=== PATIENT | male | born 1970 | race Caucasian/White ===

== ENCOUNTER 2017-07-25 00:35 | Inpatient (IN) | payer MEDICARE, OTHER ==
[~2017-07-25] VITALS: Ht 172.7 cm; Wt 105.7 kg
[2017-07-25] VITALS (61 sets, daily range): BP systolic 70–189; BP diastolic 30–105
[~2017-07-25 00:35] MED LIST: ATROPINE 1 MG/10 ML SYR IVP ONE; CODE BLUE PARTICIPANT 1 EA MISC MC ONE; EPINEPHrine PFS 0.1 MG/ML SYR IVP ONE; SODIUM BICARBONATE 8.4% PFS 50 MEQ/50 ML SYR IVP ONE
--- NOTE | 2017-07-25 00:35 | NUR ---
BIBA TO ER BED 3
--- NOTE | 2017-07-25 00:35 | NUR ---
Patient being evaluated by physician at bedside.
--- NOTE | 2017-07-25 00:35 | NUR ---
BIBA IN CARDIAC ARREST BY PARAMEDICS, 5 ROUNDS OF EPI GIVEN IN THE FIELD, CPR IN PROGRESS. PT INTUBATED IN THE FIELD WITH SIZE 7 TUBE. PT HAS HX OF ASTHMA. WAS FOUND DOWN AT HOME FOR 25 MINUTES, PULSE UPON ARRIVAL TO ED WAS 146, BP 83/59. PT WAS ASYSTOLE AT 0036.
--- NOTE | 2017-07-25 00:36 | NUR ---
BICARB GIVEN PER DR THOMPSON WHILE CPR CONTINUED. ACCU CHECK 294
--- NOTE | 2017-07-25 00:39 | NUR ---
EPI GIVEN PER DR THOMPSON.
--- NOTE | 2017-07-25 00:45 | NUR ---
# 14 FR Salazar catheter with 10 ml utilizing sterile technique. Immediate return of 10 ml CLEAR YELLOW urine noted. Bedside drainage bag placed below level of bladder. Urine sample collected and sent to lab. Pt tolerated procedure WELL.
--- NOTE | 2017-07-25 00:46 | NUR ---
BP 68/39. EPI DRIP/BOLUS STARTED PER DR THOMPSON.
--- NOTE | 2017-07-25 00:50 | NUR ---
#16 FR NG tube placed to LEFT nare. Placement checked by auscultation of instilled air into stomach and aspiration of gastric contents. Tubing taped in place to prevent dislodging. Patient tolerated WELL.
--- NOTE | 2017-07-25 00:50 | NUR ---
ATROPINE 0.5MG GIVEN PER DR THOMPSON.
--- NOTE | 2017-07-25 00:52 | NUR ---
SOLU-MEDROL 100MG GIVEN PER DR THOMPSON.
[2017-07-25] MEDS ORDERED: methylPREDNISolone SS 125 MG/2 ML VIAL ONE (00:57)
[2017-07-25] MEDS ORDERED: MAG SULF 2000 MG/WATER PREMIX 50 ML IV ONE ×2 (00:58→05:50)
--- NOTE | 2017-07-25 01:00 | NUR ---
PT GIVEN 15 MG ALBUTEROL AND 1MG ATROVENT TOTAL VIA INLINE CONTINUOUS NEBULIZER TO VENTILATOR PER DR SILVA
--- NOTE | 2017-07-25 01:00 | NUR ---
LEVOPHED DRIP STARTED PER DR. THOMPSON
--- NOTE | 2017-07-25 01:00 | NUR ---
LEVOPHED 8MG IN 250CC STARTED.
[2017-07-25] MEDS ORDERED: NOREPINEPHRINE 4 MG/4 ML VIAL IV ONE (01:04)
[2017-07-25] MEDS ORDERED: ALBUTEROL 0.083% 2.5 MG/3 ML NEBU INH ONE (01:05)
[2017-07-25] MEDS ORDERED: IPRATROPIUM 0.02% 0.5 MG/2.5 ML NEBU INH ONE (01:07)
--- NOTE | 2017-07-25 01:10 | NUR ---
MAGNESIUM DRIP STARTED PER DR THOMPSON
--- NOTE | 2017-07-25 01:25 | NUR ---
TRIPLE LUMEN - FEMORAL LINE PLACED BY DR THOMPSON. NO NEED FOR PLACEMENT VERIFICATION. TIME OUT CALLED BEFORE PROCEDURE.
[2017-07-25] MEDS ORDERED: PIPERACILLIN/TAZOBACTAM 3.375 GM in DEXTROSE 5% 50 ML IV ONE (01:40)
[2017-07-25] MEDS ORDERED: VANCOMYCIN 1,000 MG in DEXTROSE 5% 250 ML IV ONE (01:40)
--- NOTE | 2017-07-25 01:45 | NUR ---
NS BOLUS GIVEN. TEMP 95.4, PER MODESTO MONTGOMERY TO KEEP PT HYPOTHERMIC DUE TO RESUCITATION.
--- NOTE | 2017-07-25 01:45 | NUR ---
NORMAL SALINE BOLUS STARTED PER DR THOMPSON.
[2017-07-25 01:48] LABS: PLATELET COUNT (AUTO) 252 K/uL (140-450); WHITE BLOOD COUNT (AUTO) 9.9 K/uL (4.8-10.8)
[2017-07-25 01:50] LABS: APPEARANCE,URINE TURBID (CLEAR); BILIRUBIN,URINE NEGATIVE (NEGATIVE); BLOOD, URINE 3+ (NEGATIVE); COLOR,URINE RED (YELLOW); LEUKOCYTE ESTERASE ,URINE NEGATIVE (NEGATIVE); NITRITE, URINE NEGATIVE (NEGATIVE); PH,URINE 8.5 (5.0-9.0); UGLUCOSE 1+ (NEGATIVE)
--- NOTE | 2017-07-25 01:53 | NUR ---
PT ON VENT WITH RATE 20, TIDAL VOLUME 550, PEEP 5, FI02 100%. ABG BEING DRAWN NOW.
[2017-07-25 01:59] LABS: ALBUMIN 3.1 g/dL (3.4-5.0); ANION GAP 34.3 (8-16); CARBON DIOXIDE 16.5 mmol/L (21-32); CREATININE 1.4 mg/dL (0.7-1.3); HEMOGLOBIN 14.3 g/dL (12.0-18.0); MEAN CORPUSCULAR HEMOGLOBIN 35 pg (27-31); MEAN CORPUSCULAR HGB CONC 31 g/dL (33-37); POTASSIUM 4.8 mmol/L (3.5-5.1); RED BLOOD CELL COUNT(AUTO) 4.14 MIL/uL (4.20-6.10); RED CELL DISTRIBUTION WIDTH 17.3 % (11.6-13.7); TOTAL BILIRUBIN 0.2 mg/dL (0.0-1.0)
[2017-07-25 02:09] LABS: HEMATOCRIT 42.9 % (36-52); MEAN CORPUSCULAR VOLUME 113 fL (80-94)
[2017-07-25] MEDS ORDERED: SODIUM BICARBONATE 8.4% 100 MEQ in DEXTROSE 5% 1,000 ML IV SCH (02:10)
--- NOTE | 2017-07-25 02:10 | NUR ---
LEVOPHED DISCONTINUED PER DR THOMPSON.
[2017-07-25 02:11] LABS: BARBITURATE, URINE NEG. ng/ml (NEG <=200); BENZODIAZEPINE, URINE NEG. ng/mL (NEG <=200); CANNABINOID, URINE POS. ng/mL (NEG <=50); COCAINE, URINE NEG. ng/mL (NEG <=300); OPIATE, URINE NEG. ng/mL (NEG <=2000); PHENCYCLIDINE SCREEN,URINE NEG. ng/mL (NEG <=25)
[2017-07-25 02:12] LABS: LYMPHOCYTES % (MANUAL) 76 % (20-46)
[2017-07-25 02:13] LABS: EOSINOPHILS % (MANUAL) 3 % (0-4); MONOCYTES % (MANUAL) 1 % (5-12)
[2017-07-25] MEDS ORDERED: LORazepam 2 MG/ML VIAL IVP PRN (02:20)
[2017-07-25] MEDS ORDERED: DEXT 5% /NACL 0.9% 1,000 ML IV SCH ×2 (02:20→02:30)
[2017-07-25] MEDS ORDERED: ONDANSETRON 4 MG/2 ML VIAL IVP PRN ×2 (02:20→02:30)
--- NOTE | 2017-07-25 02:20 | NUR ---
Patient noted to have existing wounds upon arrival to ER. Photos taken of wound and placed in chart. Wound covered with dressing. Physician informed.
--- NOTE | 2017-07-25 02:30 | NUR ---
RECEIVED PATIENT FROM ED, ORALLY INTUBATED, HR 137, WITH TLC ON RIGHT FEMORAL AREA, NGT TO LEFT NARE, BANKS CATH WITH YELLOW URINE. SKIN ASSESSMENT DONE AND NOTED SMALL OPEN AREA ON RIGHT AND LEFT BUTTOCKS, PER SOLEDAD, PATIENT HAD FISTULA PLACED DUE TO HIS CROHNS DISEASE. TURNED AND REPOSITIONED PATIENT.
--- NOTE | 2017-07-25 02:30 | NUR ---
PT TRANSFERRED TO ICU 5 WITH SHARON GIMENEZ
[2017-07-25 02:33] LABS: RBC,URINE TOO NUMEROUS TO COUN /HPF (0-5); WBC,URINE 0-5 (RARE) /HPF (0-5)
--- NOTE | 2017-07-25 02:40 | NUR ---
MAGNESIUM IVPB COMPLETE WITHOUT PROBLEMS. 50CC INFUSED.
[2017-07-25 02:41] LABS: PHOSPHORUS 17.6 mg/dL (2.5-4.9)
--- NOTE | 2017-07-25 02:45 | NUR ---
Patient will be admitted to care of DR CONNOR. Admited to ICU. Will go to room 5. Belongings list completed. Report to PERNELL GONZALEZ.
--- NOTE | 2017-07-25 03:05 | NUR ---
CALLED DR. MENDY CONNOR FOR CARDIO CONSULT, MD INFORMED THAT PATIENT'S HR IS ELEVATED WHEN ADMITTED FROM ED 137 BUT ITS STARTING TO GO DOWN NOW. LEVOPHED DRIP WAS GIVEN IN ED BUT WAS STOPPED DUE TO SBP WENT UP TO 200. DR. CONNOR SAID TO MONITOR FOR NOW AND IF HR DOES NOT GO DOWN THEN TO CALL HIM AGAIN.
[2017-07-25] MEDS ORDERED: PIPERACILLIN/TAZOBACTAM 3.375 GM VIAL IV ONE (03:10)
--- NOTE | 2017-07-25 03:10 | NUR ---
SPOKE WITH DR. ORQUIDEA CONNOR, INFORMED THAT PATIENT'S HR ON ADMISSION FROM ED WAS 137 BUT IT'S GOING DOWN NOW, 123. CLARIFY WITH MD WHAT IVF TO GIVE THE PATIENT, MD STATED GIVE THE BICARBONATE DRIP AND DC D5NS.
[2017-07-25] MEDS ORDERED: VANCOMYCIN 1,000 MG VIAL ONE (03:11)
[2017-07-25] MEDS ORDERED: ALBUTEROL SULFATE/IPRATROPIU 3 ML SOL IH PRN (03:15)
--- NOTE | 2017-07-25 03:54 | NUR ---
0340-ICU INFO OF CHANGE IN PMD TO [facility].
--- NOTE | 2017-07-25 04:00 | NUR ---
SOLEDAD () LEFT AT THIS TIME, WILL COM BACK LATER TODAY.
[2017-07-25] MEDS ORDERED: SODIUM BICARBONATE 8.4% PFS 50 MEQ/50 ML SYR IVP ONE (04:01)
--- NOTE | 2017-07-25 04:53 | NUR ---
SPOKE WITH DR. DENILSON MD ON HIS WAY TO SEE THE PATIENT HERE.
[2017-07-25] MEDS ORDERED: PIPERACILLIN/TAZOBACTAM 3.375 GM in DEXTROSE 5% 50 ML IV SCH ×4 (05:00)
--- NOTE | 2017-07-25 05:18 | NUR ---
0500 ZOSYN ORDER NOT ADMINISTERED BECAUSE THE FIRST DOSE WAS ADMINISTERED AT 0330.
[2017-07-25] MEDS ORDERED: methylPREDNISolone SS 125 MG/2 ML VIAL IVP SCH ×2 (05:50→06:37)
[2017-07-25] MEDS ORDERED: ATROPINE 0.4 MG/ML VIAL IVP ONE (05:50)
[2017-07-25] MEDS ORDERED: NACL 0.9% 2,000 ML IV ONE (05:50)
--- NOTE | 2017-07-25 06:20 | NUR ---
REC'D PT ON CARESCAPE VENT SETTINGS AC 20 VT550 PEEP 5 FIO2 100% ALARMS ON AND FUNCTIONING PROPERLY, AMBU BAG AT SIDE OF VENTILATOR AND VENTILATOR IS PLUGGED INTO RED OUTLET, B\S ARE DIMINISHED AND WHEEZING BILATERALLY, I\L TX GIVEN WITH DUONEB 3ML WITH NO ADVERSE REACTION POST TX, PT IS ORALLY INTUBATED WITH 7.0 ET TUBE SECURED WITH ANCHOR FAST AT 23 CM AT LEFT CORNER OF MOUTH AND SKIN INTEGRITY IS INTACT, SNX PT SMALL AMT OF WHITE SECRETIONS, AT 0600 AT BEDSIDE MAKING CHANGES TO VENT: DECREASED RR TO 12 AND DECREASED FIO2 TO 60% TO KEEP O2 SAT ABOVE 90% INCREASED FLOW TO 60 AND BREATHING TX TO Q1HOUR OF ALBUTEROL 2.5MG FOR THE FIRST 24 HOURS AND AT 0800 ABG AND TO CALL HIM WITH RESULTS AT [address] SCAN OF HEAD WAS BAGGED WITH 100% FIO2 AND RETURNED TO ICU 5 AND PLACED BACK ON VENT WITH SAME NEW SETTINGS
--- NOTE | 2017-07-25 06:20 | NUR ---
ABG DRAWN ON LR WITHOUT INCIDENT AND RESULTS GIVEN TO DR. OREILLY WITH CHANGES MADE TO VENT DECREASED RR TO 12 DECREASED FIO2 TO 60% TO KEEP O2 SAT ABOVE 90% INCREASED FLOW TO 50 AND D\C DUONEB TX CHANGED TO Q1 HOUR ALBUTEROL 2.5MG FOR THE FIRST 24 HOURS AND ABG AT 0800
[2017-07-25] MEDS ORDERED: NACL 0.9% 500 ML IV SCH (06:40)
--- NOTE | 2017-07-25 06:40 | NUR ---
DR. OREILLY CAME TO SEE THE PATIENT AROUND 0600, LEFT AT THIS TIME WITH NEW ORDERS GIVEN.
[2017-07-25] MEDS ORDERED: ALBUTEROL SULFATE/IPRATROPIU 3 ML SOL IH SCH (07:00)
--- NOTE | 2017-07-25 07:05 | NUR ---
PATIENT TAKEN TO Vator FOR CT SCAN HEAD WITHOUT CONTRASTAT 0650, BACK TO ICU AT THIS TIME.
[2017-07-25] MEDS: ALBUTEROL 0.083% 2.5 MG/3 ML NEBU INH SCH ×15 (07:23→23:21)
--- NOTE | 2017-07-25 07:25 | NUR ---
RECEIVED REPORT FROM PERNELL GONZALEZ. PT IS APHASIC, EYES ARE FIXED AND DILATED. FLACC 0. PT IS ETT TO VENT. FIO2: 30%, TV: 550, AC: 12, PEEP: 5. PT HAS CENTRAL LINE TO RIGHT FEMORAL TLC. IV TO LEFT AC #18 AND RIGHT AC #18, PATENT AND INTACT. PT HAS FISTULA TO BUTTOCKS WITH TWO SMALL OPENINGS ON EACH BUTTOCK NOTED. NGT IN PLACE TO LEFT NARE. BANKS CATHETER IN PLACE TO GRAVITY DRAINAGE BAG. SAFETY PRECAUTIONS IN PLACE WITH BED IN LOWEST POSITION AND SIDE RAILS UP. CALL LIGHT WITHIN REACH. PT IS CURRENTLY SINUS RHYTHM ON THE MONITOR. WILL CONTINUE TO MONITOR.
[2017-07-25] MEDS: NACL 0.9% 1,000 ML IV SCH ×3 (07:26→18:45)
--- NOTE | 2017-07-25 07:44 | NUR ---
DR. LEYVA CALLED (BUNDLE SORTER FOR DR. OREILLY). NOTIFIED OF CRITICAL CT SCAN OF HEAD RESULTS. GAVE ORDERS.
--- NOTE | 2017-07-25 07:46 | NUR ---
ENDORSED PATIENT AND REPORT GIVEN TO GATO COSTELLO RN FOR CONTINUITY OF CARE.
--- NOTE | 2017-07-25 07:46 | NUR ---
DR. COLLADO'S EXCHANGE NOTIFIED OF STAT NEURO CONSULT.
--- NOTE | 2017-07-25 08:09 | NUR ---
G DRAWN ON LB WITHOUT INCIDENT AND DR. OREILLY WAS CALLED
--- NOTE | 2017-07-25 08:10 | NUR ---
PATIENT HAS BEEN SCREENED AND CATEGORIZED HIGH NUTRITION RISK. PATIENT WILL BE SEEN WITHIN 1-2 DAYS OF ADMISSION. 07/25/17-07/26/[address]
--- NOTE | 2017-07-25 08:22 | NUR ---
DR. LEYVA CALLED AND GIVEN THE RESULTS OF ABG AND CHANGES MADE TO VENTILATOR ARE INCREASED RR TO 22 AND DEREASED VT TO 500 AND ABG AT 0930 RN GATO Shields NOTIFIED OF CHANGES MADE TO VENT
--- NOTE | 2017-07-25 08:50 | NUR ---
RECEIVED CALL FROM DR. COLLADO. UPDATED HIM ON PT'S CURRENT STATUS. PER DR. COLLADO, PT NEEDS TO BE TRANSFERRED TO HIGHER LEVEL OF CARE.
--- NOTE | 2017-07-25 09:03 | NUR ---
PAGED DR. LEYVA REGARDING TRANSFERRING PT TO HIGHER LEVEL OF CARE. AWAITING CALLBACK
--- NOTE | 2017-07-25 09:09 | NUR ---
RECEIVED CALLBACK FROM DR. LEYVA. INFORMED THAT HE WILL SPEAK WITH DR. COLLADO REGARDING PLAN FOR PT.
--- NOTE | 2017-07-25 09:10 | NUR ---
VENT CHECK, NO SXN REQUIRED AT THIS TIME, B\S ARE WHEEZING BILATERALLY, AIRWAY IS PATENT AND AT BEDSIDE NO CHANGES MADE AT THIS TIME
[2017-07-25] MEDS: PANTOPRAZOLE 40 MG INJ VIAL IVP SCH (09:20)
[2017-07-25] MEDS: AZITHROMYCIN 500 MG in DEXTROSE 5% 250 ML IV SCH (09:20)
--- NOTE | 2017-07-25 09:23 | NUR ---
PAGED DR. LEYVA REGARDING CRITICAL LAB RESULT. AWAITING CALLBACK.
--- NOTE | 2017-07-25 09:26 | NUR ---
G DRAWN ON RR WITHOUT INCIDENT AND DR. LEYVA WAS CALLED
--- NOTE | 2017-07-25 09:29 | NUR ---
RECEIVED CALL FROM DR. COLLADO, INFORMED THAT HE NO LONGER WANTS TO TRANSFER THE PT TO HIGHER LEVEL OF CARE.
[2017-07-25 09:42] LABS: CREATINE KINASE MB 59.9 ng/mL (0-3.6)
--- NOTE | 2017-07-25 09:44 | NUR ---
RE-PAGED DR. LEYVA, AWAITING CALLBACK.
[2017-07-25] MEDS: NOREPINEPHRINE 8 MG in DEXTROSE 5% 250 ML IV PRN (10:04)
--- NOTE | 2017-07-25 10:04 | NUR ---
DR. LEYVA WAS PAGED AGAIN
--- NOTE | 2017-07-25 10:15 | NUR ---
RE-PAGED DR. LEYVA. AWAITING CALLBACK.
--- NOTE | 2017-07-25 10:28 | NUR ---
RECEIVED ORDER FOR TRANSFER FOR HIGHER LEVEL OF CARE. I CALLED JHONNY AT [facility] AND SHE SAID I NEED TO CONTACT PHYSICIAN [facility]. I CALL [facility] AND SPOKE WITH ANEL, OP 1 AND INFORMED HER OF TRANSFER TO HIGHER LEVEL OF CARE. SHE TOLD ME TO FAX FACE [facility]ET AND REVIEW TO HER AT [phone]. FAXED INITIAL REVIEW TO HER. CALLED ANEL AND INFORMED HER THAT DR. COLLADO CANCELED THE TRANSFER TO HIGHER LEVEL OF CARE.
--- NOTE | 2017-07-25 10:37 | NUR ---
STILL HAVE NOT RECEIVED A CALLBACK FROM DR. LEYVA. CALLED [employer] TO SEND OUT A PAGE
--- NOTE | 2017-07-25 10:39 | NUR ---
RECEIVED CALLBACK FROM DR. LEYVA. NEW ORDERS RECEIVED.
--- NOTE | 2017-07-25 10:40 | NUR ---
DR. LEYVA CALLED AND GIVEN THE ABG RESULTS WITH CHANGES MADE TO VENTILATOR: INCREASE VT TO 600 AND INCREASE RR TO 24 AND ABG AT 1200 PERNELL HOSKINS NOTIFIED OF CHANGES MADE
--- NOTE | 2017-07-25 11:20 | NUR ---
VENT CHECK, NO SXN REQUIRED AT THIS TIME, AIRWAY IS PATENT
--- NOTE | 2017-07-25 11:25 | NUR ---
PT'S , SY, PRESENT AT BEDSIDE.
--- NOTE | 2017-07-25 11:30 | NUR ---
07/25/17 RD INITIAL ASSESSMENT COMPLETED PLEASE REFER TO NUTRITION ASSESSMENT UNDER CARE ACTIVITY FOR ESTIMATED NUTRITIONAL NEEDS. 1. INITIATE ENTERAL NUTRITION SUPPORT - NUTREN PULMONARY AT 20 ML/HR (TO REMAIN SLOW UNTIL LABS ARE STABLE) 2. RD TO FOLLOW-UP 2-3 DAYS, HIGH RISK SHELBY VALADEZ, [place]WALD
--- NOTE | 2017-07-25 11:32 | NUR ---
DR. LEYVA IN TO SEE PT.WILL FOLLOW UP ON ORDERS
--- NOTE | 2017-07-25 11:52 | NUR ---
DR. Giovani CONNOR IN TO SEE PT. WILL FOLLOW UP ON ORDERS.
[2017-07-25] MEDS ORDERED: oxyCODONE 40 MG TABER PO SCH ×2 (12:00→18:00)
[2017-07-25] MEDS ORDERED: levETIRAcetam 500 MG in NACL 0.9% 100 ML IV SCH (12:30)
[2017-07-25] MEDS: methylPREDNISolone SS 125 MG/2 ML VIAL IVP SCH ×2 (12:32→21:26)
--- NOTE | 2017-07-25 12:44 | NUR ---
ABG DRAWN ON LR WITHOUT INCIDENT AND AT 1251 DR. LEYVA PAGED AND AT 1254 CALLED AND GIVEN THE ABG RESULTS WITH CHANGES MADE TO VENTILATOR: INCREASE RR TO 26 AND DECREASE FIO2 TO 50% AND ABG IN AM ON 07/26/17 PERNELL Shields NOTIFIED OF CHANGES MADE.
--- NOTE | 2017-07-25 12:54 | NUR ---
PT'S AUNT PRESENT AT BEDSIDE.
[2017-07-25] MEDS ORDERED: MORPHINE SULFATE 2 MG/ML SYR IVP PRN (14:15)
[2017-07-25] MEDS: LORazepam 2 MG/ML VIAL IVP PRN (14:19)
--- NOTE | 2017-07-25 14:26 | NUR ---
PT IS ADAMANT ON ADMINISTERING MEDICATION FOR PAIN RELIEF. INFORMED HER THAT THE PATIENT DOES NOT APPEAR TO BE IN ANY PAIN, FLACC IS 0. PT'S SPOUSE STILL ADAMANT ON ADMINISTERING MEDICATION. CHECKED BP: 103/62. ADMINISTERED ATIVAN AND MORPHINE PER REQUEST. PT TOLERATED WELL. WILL CONTINUE TO MONITOR. Addendum: 07/25/17 at 1458 by Amanda Escamilla RN CHARTED "PT IS ADAMANT ON ADMINISTERING MEDICATION" IN ERROR. PT'S SPOUSE, SOLEDAD, ADAMANT ON ADMINISTERING PAIN MEDICATION.
--- NOTE | 2017-07-25 14:54 | NUR ---
TRIMMING CASERANNMARIE, PRESENT AT BEDSIDE FOR WOUND CARE EVAL.
[2017-07-25] MEDS ORDERED: FOAM DRESSING TP PRN (14:55)
--- NOTE | 2017-07-25 15:26 | NUR ---
WOUND CARE EVALUATION NOTE: REASON FOR EVALUATION: OPEN WOUNDS COMPLETE SKIN ASSESSMENT DONE ON THIS 47 Y/O MALE PATIENT FROM HOME TO [facility], WITH INITIAL DIAGNOSIS OF RESPIRATORY ARREST. PAST MEDICAL HISTORY INCLUDE SEVERE ASTHMA. ALL ABOVE INFORMATION WAS OBTAINED FROM THE ADMISSION H&P. LABS ARE WBC 9.9, H/H 14.3/42.9. CURRENT MEDS INCLUDE LEVETIRACETAM, OXYCODONE, AZITHROMYCIN, ALBUTERAL, LORAZEPAM AND MORPHINE. PATIENT IS INTUBATED AND SEDATED, NON-VERBAL. EYES OPEN BUT CAN'T TRACK MOVEMENT. NG TUBE IN PLACE, F/C #16FR PATENT WITH BALTAZAR COLOR OF SMALL AMOUNT OF URINE NOTICE IN BEDSIDE DRAINAGE BAG. TRIPLE LUMEN FEMORAL LINE WITH DRESSING IN PLACE AT RIGHT GROIN AREA. SKIN WARM AND MOIST TO TOUCH, TOENAILS ARE SLIGHTLY THICKENED, NO EDEMA,, WITH FEW HAIR GROWTH AND BILATERAL DORSAL PEDAL PULSES PRESENT. URINE AND BOWEL INCONTINENT. NEEDS MAX ASSISTANCE IN TURNING. INITIAL PLAN OF CARE AND PRESSURE PREVENTIVE MEASURES DISCUSSED WITH PRIMARY RN. INTEGUMENTARY: RIGHT BUTTOCK-BLANCHABLE REDNESS-[id number], QUESTIONABLE REOPEN OLD HEALED WOUND WITH SMALL PIN POINT 0.1X0.1, DEPTH UTD LEFT BUTTOCK -BLANCHABLE REDNESS- 2CM X 1CM WITH ERYTHAMA. QUESTIONABLE REOPEN OLD HEALED WOUND WITH SMALL PIN POINT 0.1X0.1, DEPTH UTD SACRALCOCCYX TO PERIAREA - RED AND MOIST DUE TO URINE AND BOWEL INCONTINENCE RIGHT HEEL - THICK CALLUS LEFT HEEL - THICK CALLUS RECOMMENDATIONS: -SACRALCOCCYX AND PERIAREA: CLEANSE WITH MILD SOAP AND WATER, PAT DRY, APPLY Z GUARD BIDWC AND PRN WITH SOILING LEAVE OPEN TO AIR -BILATERAL BUTTOCKS, CLEANSE WITH NS, PAT DRY, APPLY OPTIFORM QD AND PRN IF SOILING -TURN AND REPOSITION PATIENT Q2H TO LEFT AND RIGHT SIDE ONLY TO OFFLOAD SACRALCOCCYX AND BUTTOCKS -ASSESS AND MONITOR SKIN CONDITION DURING POSITION CHANGE, PLEASE PAY PARTICULAR ATTENTION TO SACRALCOCCYX, ELBOWS ANDB UTTOCKS -OFFLOAD BILATERAL HEELS BY PLACING PILLOWS UNDER CALVES AT ALL TIMES, UNLESS OTHERWISE CONTRAINDICATED -KEEP SKIN CLEAN AND DRY AT ALL TIMES. -PRESSURE REDISTRIBUTION SURFACE THERAPY. RECOMMENDATIONS DISCUSSED WITH PRIMARY RN WILL FOLLOW UP PATIENT Q7-10 DAYS AND PRN. PLEASE CONTACT WOUND CARE NURSE FOR ANY CONCERNS, QUESTIONS AND CHANGES IN WOUND CONDITION.
--- NOTE | 2017-07-25 15:41 | NUR ---
CHECKED PT'S TEMP: 100.8. NO TYLENOL IS ON BOARD, INITIATED COOLING MEASURES. PAGED DR. LEYVA FOR ORDERS. AWAITING CALLBACK
--- NOTE | 2017-07-25 15:57 | NUR ---
RECEIVED CALLBACK FROM DR. LEYVA. NEW ORDERS RECEIVED.
--- NOTE | 2017-07-25 15:58 | NUR ---
RECHECKED TEMP: 98.7. WILL CONTINUE TO MONITOR
--- NOTE | 2017-07-25 15:58 | NUR ---
TRACKING NUMBERT FROM [facility] [id number]
[2017-07-25] MEDS ORDERED: Z-GUARD PASTE TP PRN (16:10)
[2017-07-25] MEDS: ACETAMINOPHEN 325 MG TAB NG PRN ×2 (16:20→21:47)
--- NOTE | 2017-07-25 16:30 | NUR ---
CHECKED TEMP: 103.2. TYLENOL ADMINISTERED ORDERED FOR FEVER PRN. CHECKED TUBE FEEDING RESIDUAL: 5ML, RETURNED TO PT. PT TOLERATED MEDS WELL. WILL CONTINUE TO MONITOR.
--- NOTE | 2017-07-25 17:19 | NUR ---
RECHECKED TEMP. PT IS STILL FEBRILE: 103.2, WILL ADMINISTER COOLING BLANKET
--- NOTE | 2017-07-25 17:42 | NUR ---
DR. COLLADO IN TO SEE PT. WILL FOLLOW UP ON ORDERS.
--- NOTE | 2017-07-25 19:22 | NUR ---
1830 recieved pt on vent ac 26 vt 600 peep5 fio2 50%. pt given inline hhntx. bs are tight and wheezing.high peak pressures are alarming. called dr cummings to maybe make a change in mode. dr cummings said to just increase alarms.
--- NOTE | 2017-07-25 19:45 | NUR ---
REPORT TAKEN FROM DAY NURSE DEEPA - RN WITH RESUME CARE. PT'S ON COOLING BLANKET THERAPY WITH TEM 104.3 F VIA RECTAL TEMP. IVF AND LEVOPHED IN PROGRESS VIA RIGHT FEMORAL TLC, LINE PATENT.
--- NOTE | 2017-07-25 19:45 | NUR ---
ENDORSED CARE TO PERNELL YAO AND PERNELL WASHUBRN. PT IN STABLE CONDITION.
--- NOTE | 2017-07-25 20:00 | NUR ---
ORAL CARE DONE , DARK COLOR SECRETION NOTED. NG TUBE FEEDING HOLD WITH RESIDUAL @ 50 MLS , FOOD AND DARK BROWN COLOR NOTED. BANKS CATH GRAVITY TO FLOOR.
--- NOTE | 2017-07-25 20:53 | NUR ---
LEVOPHED DRIP STOPPED AT THIS TIME. PT'S BP 142/85. WILL CONTINUE TO MONITOR.
[2017-07-25] MEDS: levETIRAcetam 500 MG in NACL 0.9% 100 ML IV SCH (21:27)
[2017-07-25] MEDS ORDERED: levETIRAcetam 100 MG/ML VIAL IV ONE (21:29)
--- NOTE | 2017-07-25 22:00 | NUR ---
PT'S CAME , UP DATED PT CONDITION WITH RESPOND WELL.
[2017-07-26] VITALS (103 sets, daily range): BP systolic 84–131; BP diastolic 44–101
--- NOTE | 2017-07-26 | NUR ---
PT'S ASLEEP. RESPOND TO COOL WATER. ORAL CARE DONE . REPOSITION DONE . KEEP HOB 30 WITH TOLERATING WELL. NG TUBE SUCTION DONE WITH DARK GREEN , 150 , HOLD FEEDING AT THIS TIME.
--- NOTE | 2017-07-26 00:44 | NUR ---
BP DROP TO 84/50 ( MAP 61) , RE START LEVOPHED @ 5MCG/ MIN VIA FEMORAL TLC , LINE PATENT
--- NOTE | 2017-07-26 00:45 | NUR ---
PT'S LEFT , PT'S FEVER COME DOWN TO 100.3
[2017-07-26] MEDS: ALBUTEROL 0.083% 2.5 MG/3 ML NEBU INH SCH ×6 (00:47→07:21)
[2017-07-26] MEDS: Z-GUARD PASTE TP SCH ×2 (01:35→12:59)
--- NOTE | 2017-07-26 01:47 | NUR ---
NOTIFIED DR. WILBURN RE < 0.4 SEC WITH 14 BEATS MONO V FIB , NO NEW ORDER.
[2017-07-26] MEDS: LORazepam 2 MG/ML VIAL IVP PRN (02:17)
[2017-07-26 02:54] LABS: CREATINE KINASE MB 27.8 ng/mL (0-3.6)
--- NOTE | 2017-07-26 04:31 | NUR ---
NOTIFIED DR. VELÁZQUEZ OF CRITICAL LAB RESULT TROPONIN 11.950. HE SAID IT IS OK. DR. VELÁZQUEZ ALSO NOTIFIED THAT DR. Giovani CONNOR WAS CANCELLED CONSULT YESTERDAY AM. HE SAID TO HAVE DR. MENDY CONNOR FOR CARDIO CONSULT IN AM.
[2017-07-26 04:57] LABS: HEMOGLOBIN 13.4 g/dL (12.0-18.0); MEAN CORPUSCULAR HEMOGLOBIN 35 pg (27-31); MEAN CORPUSCULAR HGB CONC 32 g/dL (33-37); MEAN CORPUSCULAR VOLUME 109 fL (80-94); PLATELET COUNT (AUTO) 167 K/uL (140-450); RED BLOOD CELL COUNT(AUTO) 3.87 MIL/uL (4.20-6.10); RED CELL DISTRIBUTION WIDTH 16.5 % (11.6-13.7); WHITE BLOOD COUNT (AUTO) 13.4 K/uL (4.8-10.8)
--- NOTE | 2017-07-26 05:02 | NUR ---
DR. Shyanne CONNOR NOTIFIED OF THE CARDIO CONSULT PER TORB BY DR. VELÁZQUEZ. DR. Giovani CONNOR AWARE OF PT'S LATEST TROPONIN LEVEL OF 11.950. HE SAID "IT IS EXPECTED." NO ORDERS RECEIVED. WILL CONTINUE TO MONITOR.
[2017-07-26] MEDS: NACL 0.9% 1,000 ML IV SCH ×3 (05:40→15:24)
[2017-07-26] MEDS: methylPREDNISolone SS 125 MG/2 ML VIAL IVP SCH ×3 (05:59→20:55)
--- NOTE | 2017-07-26 06:00 | NUR ---
AM CARE DONE , REPOSITION DONE. ORAL CARE DONE. NG TUBE FEEDING ON HOLD WITH 700 RESIDUAL ALL NIGHT . FEVER WENT DOWN TO 98.3 WITH PT'S REST IN BED.
--- NOTE | 2017-07-26 06:58 | NUR ---
RCV'D PT INTUBATED WITH A 7.0 ETT AT 23 AT THE LIP. SETTINGS ARE AC 600,26,5,50%. PT IS NOT ALERT. PT HAS HIGH PEAK PRESSURES. VENT IS CONNECTED TO RED OUTLET. ALARMS ARE WORKING AND AUDIBLE. AMBU BAG AT BEDSIDE. ALB HHN TX GIVEN. ABG DONE BY RT BURGOS WITHOUT INCIDENT. PAGED DR DAVIS WAITING FOR CALLBACK TO GIVE RESULTS. WILL CONTINUE TO MONITOR.
--- NOTE | 2017-07-26 07:15 | NUR ---
REPORT ENDORSE TO DAY NURSE WITH RESUME CARE
--- NOTE | 2017-07-26 07:22 | NUR ---
STILL NO ANSWER FROM DR DAVIS. FREEMAN TX OF ALB Q1 GIVEN. WILL CONTINUE TO MONITOR. Addendum: 07/26/17 at 0724 by Kay Bailey RT RN AWARE OF ABG RESULTS AND OF PAGKG PANTOJA
[2017-07-26 07:29] LABS: LYMPHOCYTES % (MANUAL) 4 % (20-46); MONOCYTES % (MANUAL) 5 % (5-12)
--- NOTE | 2017-07-26 07:30 | NUR ---
RECEIVED REPORT FROM PERNELL WASHBURN. PT GCS OF 3. BILATERAL EYES DILATED AND FIXED. FLACC OF 0. NO S/SX OF DISCOMFORT NOTED. ETT TO VENT. SATURATING AT 95%. TOLERATING WELL. SR ON MONITOR. BOWEL SOUNDS HEARD. NG TUBE TO THE LEFT NARES NOTED. HOLDING TUBE FEEDING FOR NOW D/T RESIDUAL. WILL RECHECK. BILATERAL UPPER EXTREMITIES AND BILATERAL LOWER EXTREMITIES NOTED TO BE FLACCID. COLD TO TOUCH. DOES NOT RESPOND TO PAIN. R FEMORAL TRIPLE LUMEN CENTRAL LINE NOTED. INTACT AND PATENT. CONTINUE LEVOPHED DRIP ORDERED. TOLERATED WELL. SKIN NONINTACT. WOUNDS NOTED ON BILATERAL BUTTOCKS. DRAINAGE NOTED. MD AWARE. RECTAL PROBE IN PLACE FOR ACCURATE TEMPERATURE CHECK. AFEBRILE. NO COOLING MEASURES NEEDED. BANKS CATHETER IN PLACE. DRAINING DARK MURKY YELLOW URINE. SAFETY PRECAUTION IN PLACE. BED AT LOWEST SETTING. HOB AT 30 DEGREE. CALL LIGHT WITHIN REACH. WILL CONTINUE TO MONITOR.
--- NOTE | 2017-07-26 07:35 | NUR ---
PAGED ALEXY MAHAJAN AGAIN AND PER OPERATED DR MAHER DIRECTOR FOOD SAFETY. STILL NO RETURN OF PHONE CALL.GAVE ABG RESULTS TO RN. RN AWARE OF NOT CALLING BACK FOR ABG RESULTS. HHN TX OF ALBUTEROL GIVEN. WILL CONTINUE TO MONITOR.
--- NOTE | 2017-07-26 07:40 | NUR ---
RECEIVED CALL BACK BY DR. LEYVA. ABG RESULT REPORTED, NO NEW ORDERS. RECEIVED ORDERS FOR HEAD CT TO DETERMINE BRAIN . WILL CARRY OUT ORDERS.
--- NOTE | 2017-07-26 07:47 | NUR ---
DROPPED FIO2 TO 30%. SPO2 96%. WILL CONTINUE TO MONITOR.
--- NOTE | 2017-07-26 07:50 | NUR ---
RADIOLOGIST AT BEDSIDE, RT AT BEDSIDE, RN AT BEDSIDE TO TRANSPORT PT TO CT. PLACED ON PORTABLE MONITOR. PT LEFT UNIT WITH IV DRIP.
--- NOTE | 2017-07-26 08:12 | NUR ---
PER RN TUNG DR MAHER CALLED BACK ANG SHE GAVE HIM ABG RESULTS. NO CHANGES MADE. TOOK PT TO CT AND BACK WITH NO INCIDENT. WILL CONTINUE TO MONITOR.
--- NOTE | 2017-07-26 08:15 | NUR ---
PT RETURNED TO UNIT. PLACED BACK ON BEDSIDE MONITORING. PT TOLERATED WELL. VITALS WITHIN NORMAL LIMITS.
--- NOTE | 2017-07-26 08:30 | NUR ---
RESIDUAL CHECKED. 80 CC NOTED. APPEARS TO BE COFFEE GROUND IN NATURE. WILL PAGE MD TO NOTIFY. HOLDING TUBE FEEDING D/T RESIDUAL APPEARANCE UNTIL MD SAYS OTHERWISE.
[2017-07-26] MEDS: PANTOPRAZOLE 40 MG INJ VIAL IVP SCH (08:46)
[2017-07-26] MEDS: levETIRAcetam 500 MG in NACL 0.9% 100 ML IV SCH ×2 (08:46→20:54)
[2017-07-26] MEDS: AZITHROMYCIN 500 MG in DEXTROSE 5% 250 ML IV SCH (08:47)
--- NOTE | 2017-07-26 08:50 | NUR ---
RECEIVED CALL STATING THERE IS CRITICAL RESULT FROM RADIOLOGY REGARDING CT SCAN. PLACED ON HOLD TO SPEAK WITH RADIOLOGIST FOR THOSE RESULTS.
--- NOTE | 2017-07-26 09:00 | NUR ---
IV MEDICATION ADMINISTERED ORDERED. TOLERATED WELL.
--- NOTE | 2017-07-26 09:05 | NUR ---
NO RADIOLOGIST AVAILABLE TO SPEAK WITH RN. WILL PAGE MD TO REPORT.
--- NOTE | 2017-07-26 09:10 | NUR ---
OF PT AT BEDSIDE WITH MULTIPLE CONCERNS REGARDING CARE. REQUESTING IMMEDIATE ANSWERING. WILL F/U WITH MD TO PROVIDE DETAIL READING OF CT IMPRESSION AFTER ANSWERING QUESTIONS MD IS AWARE OF RESULT.
[2017-07-26] MEDS: NOREPINEPHRINE 8 MG in DEXTROSE 5% 250 ML IV PRN (09:19)
--- NOTE | 2017-07-26 09:49 | NUR ---
DR. LEYVA PAGED. AWAITING CALLBACK.
--- NOTE | 2017-07-26 09:51 | NUR ---
CALL BACK RECEIVED FROM MD. WILL HOLD TUBE FEEDING PER INSTRUCTED. REPORT CT RESULTS. MD WILL ARRIVE TO SPEAK WITH FAMILY.
--- NOTE | 2017-07-26 10:15 | NUR ---
[facility] NOTIFIED OF CURRENT CASE. REFERRAL NUMBER [id number]. AWAITING CALL BACK FROM COORDINATOR.
--- NOTE | 2017-07-26 11:05 | NUR ---
SPOKE WITH YANNI, [facility] COORDINATOR. PULP MIXER WILL BE BY IN THE AFTERNOON FOR PERCY.
--- NOTE | 2017-07-26 11:30 | NUR ---
DR. LEYVA AT BEDSIDE TO SEE PT. WILL F/U WITH NEW ORDERS.
--- NOTE | 2017-07-26 12:00 | NUR ---
PT NOTED TO HAVE A TEMP 100.3 F. COOLING MEASURES INITIATED. WILL CONTINUE TO MONITOR.
--- NOTE | 2017-07-26 12:03 | NUR ---
CM NOTE CONCURRENT REVIEW FAXED TO [facility] / FAX# [phone], C: [phone]
--- NOTE | 2017-07-26 13:00 | NUR ---
TEMP NOTED TO BE 99.6. CONTINUE COOLING MEASURES. FAMILY AT BEDSIDE. DRESSING CHANGED D/T SOILAGE. CLEANSED WITH NS, PAT DRY, PLACED FOAM DRESSING.
--- NOTE | 2017-07-26 14:00 | NUR ---
VITALS SIGNS STABLE. PT IN BED WITH HEAD OF BED AT 30 DEGREE. NO S/SX OF ACUTE DISTRESS NOTED. FLACC 0. WILL CONTINUE TO MONITOR.
--- NOTE | 2017-07-26 15:00 | NUR ---
[facility] ON UNIT TO EVALUATE CASE.
--- NOTE | 2017-07-26 16:23 | NUR ---
SS NOTE: I SPOKE WITH PT'S , SY BEDSIDE TO PT. SHE STATED THAT SHE IS MAKING PLANS FOR ORGAN DONATION FOR PT AND DOES NOT CURRENTLY NEED ANYTHING AT THIS TIME. I SPOKE WITH THE REPRESENTATIVES FROM [facility] THAT WERE IN THE [facility] [place] [facility] ASSESSING PT. THEY STATED THAT THEY DO PROVIDE AFTERCARE AND SUPPORT FOR PT'S FAMILY FOR TWO YEARS.
--- NOTE | 2017-07-26 17:45 | NUR ---
PE DR ADORNO CPAP TRIAL FOR [facility] TO CHECK IF PT WILL BREATH ON HIS OWN. CPAP OF 5. PT DID NOT BREATH AND IS BACK ON AC. RN AWARE AND [facility] AT BEDSIDE.
--- NOTE | 2017-07-26 18:45 | NUR ---
I RECEIVED PT ON AC 500, , RR 12, BUT CHANGED TO 26, 50 %, AND INCREASED TO 65% BECAUSE SAT WAS DECREASED TO 88%, AND SPOKE WITH THE NURSES FROM [facility]. SPUTUM SENDED TO THE LAB, EKG DONE.
--- NOTE | 2017-07-26 19:40 | NUR ---
RECIEVED PATIENT FROM [facility] GIMENEZ.PATIENT ON ETT TO VENT ISAEL WELL. PATIENT LETHARGIC. FLACC 0. NO S/S OF DISCOMFORT/NO PAIN NOTED. BILATERAL EYES DILATED AND FIXED. NGT IN PLACE ON LEFT NARES. RESIDUAL ABOUT 190 CC. NGT FEEDING WAS ON HOLD AT THIS TIME.POSITIVE BOWEL SOUNDS ALL QUADRANT.CONT ON LEVOPHED DRIP ORDER ISAEL WELL.F/C INTACT WITH DARK BALTAZAR COLOR. FEMORAL PICC LINE WITH TRIPLE LUMEN INTACT WELL.CONT ON IV NS AT 100 CC/HR ISAEL WELL. SALINE FLUSH ON LEFT AC NO 18 G. ORAL CARE GIVEN ISAEL WELL. SKIN NON INTACT MARGO BUTTOCK ABSCESS. REPOSITION FOR COMFORT. Addendum: 07/27/17 at 0536 by Deepali Keene RN PATIENT HAVE CENTRAL LINE THREE LUMEN TO RIGHT FEMORAL
--- NOTE | 2017-07-26 20:00 | NUR ---
G DONE, REPORTED TO [facility], NO CHANGES MADE.
--- NOTE | 2017-07-26 20:22 | NUR ---
LATEST ABG RESULT RELAYED BY TELEPHONE TO DR. LEYVA; NO NEW ORDER MADE BECAUSE HE SAID PATIENT IS ALREADY DYING.
[2017-07-26 20:24] LABS: HEMATOCRIT 39.8 % (36-52); HEMOGLOBIN 13.2 g/dL (12.0-18.0); MEAN CORPUSCULAR HEMOGLOBIN 35 pg (27-31); MEAN CORPUSCULAR HGB CONC 33 g/dL (33-37); MEAN CORPUSCULAR VOLUME 107 fL (80-94); PLATELET COUNT (AUTO) 157 K/uL (140-450); RED BLOOD CELL COUNT(AUTO) 3.73 MIL/uL (4.20-6.10); RED CELL DISTRIBUTION WIDTH 15.7 % (11.6-13.7)
[2017-07-26 20:31] LABS: PROTHROMBIN TIME 9.9 secs (10.8-13.4)
[2017-07-26 20:32] LABS: BILIRUBIN,URINE 2+ (NEGATIVE); BLOOD, URINE 3+ (NEGATIVE); LEUKOCYTE ESTERASE ,URINE TRACE (NEGATIVE); NITRITE, URINE NEGATIVE (NEGATIVE); UGLUCOSE 1+ (NEGATIVE)
[2017-07-26 20:34] LABS: APPEARANCE,URINE HAZY (CLEAR); COLOR,URINE AMBER (YELLOW)
[2017-07-26 20:41] LABS: ANION GAP 17.8 (8-16); CARBON DIOXIDE 20.7 mmol/L (21-32); MAGNESIUM 1.6 mg/dL (1.8-2.4); POTASSIUM 5.5 mmol/L (3.5-5.1); TOTAL BILIRUBIN 0.6 mg/dL (0.0-1.0)
[2017-07-26 20:48] LABS: CREATININE 6.4 mg/dL (0.7-1.3)
[2017-07-26] MEDS: ACETAMINOPHEN 325 MG TAB NG PRN (20:56)
[2017-07-26 20:57] LABS: COARSE GRANULAR CASTS,URINE 0-10 /LPF (None Seen); RBC,URINE TOO NUMEROUS TO COUN /HPF (0-5)
--- NOTE | 2017-07-26 21:00 | NUR ---
TEMP.100.4 TYLENOL 650 MG PRN GIVEN.CONT COOLING MEASURE. SOLUMEDROL AND KEPRA GIVEN ORDER.
--- NOTE | 2017-07-26 21:30 | NUR ---
RECHECK TEMP. DOWN TO 97.4. CONT TO MONITOR.
[2017-07-26 21:58] LABS: LYMPHOCYTES % (MANUAL) 5 % (20-46); MONOCYTES % (MANUAL) 2 % (5-12)
--- NOTE | 2017-07-26 22:00 | NUR ---
BP 89/52, LEVOPHEN TITRATE TO 5 MCG/MIN OR 9.37CC/HR. TURN PATIENT TO LEFT SIDE.CONT TO MONITOR CLOSELY.
--- NOTE | 2017-07-26 22:02 | NUR ---
PAGED DR. LEYVA TO REPORT ON CRITICAL LAB RESULT; NO NEW ORDER GIVEN.
--- NOTE | 2017-07-26 22:20 | NUR ---
BP 96/61. MAP 70.CONT SAME DOSE OF LEVOPHED.CONT TO MONITOR
[2017-07-27] VITALS (105 sets, daily range): BP systolic 86–120; BP diastolic 45–75
--- NOTE | 2017-07-27 | NUR ---
REPOSITION TO RIGHT LATERAL.
[2017-07-27] MEDS: Z-GUARD PASTE TP SCH ×2 (01:00→13:56)
--- NOTE | 2017-07-27 01:40 | NUR ---
URINE SAMPLE COLLECTED AND SENT TO LAB.URINE DARK BALTAZAR COLOR.CONT ON F/C.
[2017-07-27] MEDS: NACL 0.9% 1,000 ML IV SCH ×2 (01:58→12:58)
--- NOTE | 2017-07-27 02:00 | NUR ---
NEW IV BAG NS 0.9% HANG WITH CONT ON 100 CC/HR CONNECT TO RIGHT FEMORAL LINE.
[2017-07-27 02:22] LABS: APPEARANCE,URINE CLOUDY (CLEAR); BILIRUBIN,URINE 2+ (NEGATIVE); BLOOD, URINE 3+ (NEGATIVE); COLOR,URINE BROWN (YELLOW); LEUKOCYTE ESTERASE ,URINE NEGATIVE (NEGATIVE); NITRITE, URINE NEGATIVE (NEGATIVE); UGLUCOSE 1+ (NEGATIVE)
--- NOTE | 2017-07-27 02:30 | NUR ---
ABG DONE, DECREASED FIO2 TO 50%
--- NOTE | 2017-07-27 02:30 | NUR ---
BLOOD DRAW ORDER.BLOOD DRAWN FROM RIGHT FEMORAL.
[2017-07-27 02:37] LABS: ALBUMIN 2.6 g/dL (3.4-5.0); ANION GAP 17.4 (8-16); BILIRUBIN,DIRECT 0.2 mg/dL (0.0-0.3); MAGNESIUM 1.5 mg/dL (1.8-2.4); POTASSIUM 5.4 mmol/L (3.5-5.1); TOTAL BILIRUBIN 0.7 mg/dL (0.0-1.0)
[2017-07-27 02:39] LABS: PROTHROMBIN TIME 9.8 secs (10.8-13.4)
[2017-07-27 02:40] LABS: HEMOGLOBIN 11.5 g/dL (12.0-18.0); MEAN CORPUSCULAR HEMOGLOBIN 34 pg (27-31); MEAN CORPUSCULAR HGB CONC 32 g/dL (33-37); MEAN CORPUSCULAR VOLUME 105 fL (80-94); PLATELET COUNT (AUTO) 134 K/uL (140-450); RED BLOOD CELL COUNT(AUTO) 3.42 MIL/uL (4.20-6.10); RED CELL DISTRIBUTION WIDTH 15.7 % (11.6-13.7); WHITE BLOOD COUNT (AUTO) 10.4 K/uL (4.8-10.8)
[2017-07-27 02:55] LABS: CREATININE 6.7 mg/dL (0.7-1.3)
--- NOTE | 2017-07-27 03:00 | NUR ---
VENT CK DONE, CHANGED HME AND CH
[2017-07-27 03:14] LABS: LYMPHOCYTES % (MANUAL) 3 % (20-46); MONOCYTES % (MANUAL) 4 % (5-12)
[2017-07-27 03:17] LABS: RBC,URINE TOO NUMEROUS TO COUN /HPF (0-5); URINE AMORPHOUS URATE 4+ /HPF (None Seen); WBC,URINE 0-5 (RARE) /HPF (0-5)
--- NOTE | 2017-07-27 05:00 | NUR ---
SOLU MEDROL GIVEN ORDER
[2017-07-27] MEDS: methylPREDNISolone SS 125 MG/2 ML VIAL IVP SCH ×3 (05:47→21:19)
--- NOTE | 2017-07-27 06:00 | NUR ---
AM CARE GIVEN.REPOSITION FOR COMFORT.CONT ON LEVOPHED DRIP ISAEL WELL.
--- NOTE | 2017-07-27 07:30 | NUR ---
RECEIVED REPORT FROM [employer]APH[employer]OL SOAPING MACHINE OPERATOR RN. PT UNABLE TO OBEY COMMANDS,BILATERAL EYES DILATED AND FIXED. FULL CODE. BEDSIDE MONITOR SHOWS ST. FLACC 0. ETT TO VENT WITH SETTING FIO2 50%, RR 26, TV 500, PEEP 5. NO S/S OF RESPIRATORY DISTRESS NOTED. NG TUBE TO THE LEFT NARES NOTED. NPO BILATERAL UPPER EXTREMITIES AND BILATERAL LOWER EXTREMITIES NOTED TO BE FLACCID. R FEMORAL TRIPLE LUMEN CENTRAL LINE NOTED. INTACT AND PATENT RUNNING LEVOPHED AT 5MCG/KG/MIN. SKIN NONINTACT. ( SEE WOUND ASSESSMENT) . RECTAL PROBE IN PLACE FOR ACCURATE TEMPERATURE CHECK. AFEBRILE. BANKS CATHETER IN PLACE. DRAINING SMALL AMOUNT OF DARK BROWNISH URINE. SAFETY PRECAUTION IN PLACE. BED AT LOWEST SETTING. HOB AT 30 DEGREE. CALL LIGHT WITHIN REACH. WILL CONTINUE TO MONITOR.
[2017-07-27 08:49] LABS: HEMATOCRIT 34.1 % (36-52); MEAN CORPUSCULAR HEMOGLOBIN 34 pg (27-31); MEAN CORPUSCULAR HGB CONC 32 g/dL (33-37); MEAN CORPUSCULAR VOLUME 105 fL (80-94); PLATELET COUNT (AUTO) 130 K/uL (140-450); RED BLOOD CELL COUNT(AUTO) 3.25 MIL/uL (4.20-6.10); RED CELL DISTRIBUTION WIDTH 15.8 % (11.6-13.7); WHITE BLOOD COUNT (AUTO) 9.9 K/uL (4.8-10.8)
--- NOTE | 2017-07-27 09:00 | NUR ---
CURING ROOM WORKER AND PT'S AT BEDSIDE.
[2017-07-27 09:05] LABS: ANION GAP 15.7 (8-16); CARBON DIOXIDE 21.6 mmol/L (21-32); POTASSIUM 5.3 mmol/L (3.5-5.1)
[2017-07-27 09:08] LABS: PROTHROMBIN TIME 9.3 secs (10.8-13.4)
[2017-07-27 09:10] LABS: ALBUMIN 2.6 g/dL (3.4-5.0); MAGNESIUM 1.6 mg/dL (1.8-2.4); PHOSPHORUS 4.7 mg/dL (2.5-4.9); TOTAL BILIRUBIN 0.7 mg/dL (0.0-1.0)
[2017-07-27 09:11] LABS: CREATININE 6.9 mg/dL (0.7-1.3)
[2017-07-27] MEDS: AZITHROMYCIN 500 MG in DEXTROSE 5% 250 ML IV SCH (09:11)
--- NOTE | 2017-07-27 09:13 | NUR ---
ABG DONE WITH NO INCIDENT. CALLED ALEXY MAHAJAN AT AND SPOKE TO DONNA JOSEPH TO PAGE DR LEYVA.WAITING FOR CALL BACK.
[2017-07-27 09:17] LABS: LYMPHOCYTES % (MANUAL) 2 % (20-46)
[2017-07-27 09:18] LABS: MONOCYTES % (MANUAL) 6 % (5-12)
[2017-07-27] MEDS: PANTOPRAZOLE 40 MG INJ VIAL IVP SCH (09:18)
[2017-07-27] MEDS: levETIRAcetam 500 MG in NACL 0.9% 100 ML IV SCH ×2 (09:18→21:19)
--- NOTE | 2017-07-27 09:25 | NUR ---
READ BACK ABG RESULTS TO DR LEYVA. NO CHANGES MADE.
[2017-07-27 10:48] LABS: BILIRUBIN,DIRECT 0.2 mg/dL (0.0-0.3)
[2017-07-27 10:48] LABS: BILIRUBIN,URINE 2+ (NEGATIVE); BLOOD, URINE 3+ (NEGATIVE); COLOR,URINE BROWN (YELLOW); LEUKOCYTE ESTERASE ,URINE TRACE (NEGATIVE); NITRITE, URINE POSITIVE (NEGATIVE); UGLUCOSE TRACE (NEGATIVE)
[2017-07-27 10:53] LABS: APPEARANCE,URINE CLOUDY (CLEAR)
[2017-07-27 10:56] LABS: RBC,URINE >100 /HPF (0-5); WBC,URINE 0-5 (RARE) /HPF (0-5)
[2017-07-27 10:58] LABS: URINE AMORPHOUS URATE 2+ /HPF (None Seen)
[2017-07-27] MEDS: BLOOD GLUCOSE MONITORING 1 DEV DEV FS SCH ×3 (11:30→21:19)
[2017-07-27] MEDS ORDERED: DEXTROSE 50% 50 ML SYR IVP PRN (11:30)
[2017-07-27] MEDS ORDERED: SODIUM POLYSTYRENE 15 GM/60 ML UDBTL NG SCH (11:40)
--- NOTE | 2017-07-27 12:00 | NUR ---
TURNED AND REPOSITIONED PT. ORAL CARE GIVEN.
--- NOTE | 2017-07-27 12:43 | NUR ---
CM NOTE CONCURRENT REVIEW FAXED TO [facility] / FAX# [phone], C: [phone]
[2017-07-27] MEDS: INSULIN LISPRO SLIDING SCALE 100 UNITS/ML VIAL SUBQ PRN ×3 (13:59→21:23)
[2017-07-27 14:00] LABS: APPEARANCE,URINE HAZY (CLEAR); BLOOD, URINE 3+ (NEGATIVE); COLOR,URINE YELLOW (YELLOW); LEUKOCYTE ESTERASE ,URINE NEGATIVE (NEGATIVE); NITRITE, URINE NEGATIVE (NEGATIVE); UGLUCOSE TRACE (NEGATIVE)
[2017-07-27 14:02] LABS: BILIRUBIN,URINE 2+ (NEGATIVE)
[2017-07-27 14:07] LABS: BASOPHILS # (AUTO) 0.2 K/uL (0.00-0.22); BASOPHILS % (AUTO) 1.9 % (0.0-2.0); EOSINOPHILS % (AUTO) 0.5 % (0.0-4.0); HEMATOCRIT 33.4 % (36-52); LYMPHOCYTES # (AUTO) 0.1 K/uL (2.0-11.5); LYMPHOCYTES % (AUTO) 1.5 % (20.5-51.1); MEAN CORPUSCULAR HEMOGLOBIN 35 pg (27-31); MEAN CORPUSCULAR HGB CONC 33 g/dL (33-37); MEAN CORPUSCULAR VOLUME 105 fL (80-94); MONOCYTES # (AUTO) 0.2 K/uL (0.8-1.0); MONOCYTES % (AUTO) 2.7 % (1.7-9.3); NEUTROPHILS # (AUTO) 8.8 K/uL (1.8-7.7); NEUTROPHILS % (AUTO) 93.4 % (42.2-75.2); PLATELET COUNT (AUTO) 112 K/uL (140-450); RED BLOOD CELL COUNT(AUTO) 3.18 MIL/uL (4.20-6.10); RED CELL DISTRIBUTION WIDTH 16.1 % (11.6-13.7); WHITE BLOOD COUNT (AUTO) 9.3 K/uL (4.8-10.8)
[2017-07-27 14:25] LABS: PROTHROMBIN TIME 9.2 secs (10.8-13.4)
[2017-07-27 14:26] LABS: ALBUMIN 2.6 g/dL (3.4-5.0); ANION GAP 17.7 (8-16); BILIRUBIN,DIRECT 0.2 mg/dL (0.0-0.3); CARBON DIOXIDE 19.7 mmol/L (21-32); MAGNESIUM 1.7 mg/dL (1.8-2.4); PHOSPHORUS 4.9 mg/dL (2.5-4.9); POTASSIUM 5.4 mmol/L (3.5-5.1); TOTAL BILIRUBIN 0.6 mg/dL (0.0-1.0)
[2017-07-27 14:29] LABS: RBC,URINE 80-100 /HPF (0-5); WBC,URINE 0-5 (RARE) /HPF (0-5)
[2017-07-27 14:30] LABS: URINE AMORPHOUS URATE 2+ /HPF (None Seen)
[2017-07-27 14:36] LABS: CREATININE 7.2 mg/dL (0.7-1.3)
--- NOTE | 2017-07-27 14:52 | NUR ---
ABG DONE WITH NO INCIDENT. CALLED DR LEYVA TO GIVE RESULTS. WAITING FOR CALL BACK. WILL CONTINUE TO MONITOR PT
[2017-07-27] MEDS: NOREPINEPHRINE 8 MG in DEXTROSE 5% 250 ML IV PRN (15:05)
--- NOTE | 2017-07-27 16:05 | NUR ---
TURNED AND REPOSITIONED PT, ORAL CARE GIVEN.
--- NOTE | 2017-07-27 18:05 | NUR ---
TURNED AND REPOSITIONED PT, BED BATH GIVEN.
--- NOTE | 2017-07-27 19:15 | NUR ---
REPORT GIVEN TO GLASSWARE VERIFIER RN.
--- NOTE | 2017-07-27 19:30 | NUR ---
ASSUMED CARE OF PT.INITIAL ASSESSMENT COMPLETED.PT NON RESPONSIVE.NO COUGH/NO GAG REFLEX.SR TO ST ON MONITOR.ORALLY INTUBATED FIO2 50% TV500 AC26 PEEP 5.W/TLC TO RT FEMORAL INTACT.GOOD BLOOD RETURN TO ALL 3 PORTS INFUSING ORDERED IVF AND LEVOPHED DRIP 8MG IN 250ML D5W AT 5MCG/MIN(9.37ML/HR).WITH NGT TO LT NARES IN PLACE.W/DARK BROWNISH SECRETIONS/OUTPUT NOTED.CLAMPED.PT MAINTAINED ON NPO.WITH BANKS CATHETER TO BSD DRAINING SMALL AMT OF CLOUDY DARK BALTAZAR COLORED URINE.ALL EXTREMITIES FLACCID.FLACC 0
--- NOTE | 2017-07-27 20:00 | NUR ---
ORAL CARE USING VAP KIT RENDERED.PT ON DAILY PROTONIX FOR GI PROPHYLAXIS AND SCD TO BLE FOR DVT PROPHYLAXIS. REPOSITIONED. DRY AND INTACT DRESSING TO SACRUM NOTED.
[2017-07-27 20:18] LABS: BASOPHILS # (AUTO) 0.1 K/uL (0.00-0.22); BASOPHILS % (AUTO) 0.9 % (0.0-2.0); EOSINOPHILS # (AUTO) 0.1 K/uL (0-0.4); EOSINOPHILS % (AUTO) 1.6 % (0.0-4.0); HEMATOCRIT 31.9 % (36-52); HEMOGLOBIN 10.6 g/dL (12.0-18.0); LYMPHOCYTES # (AUTO) 0.2 K/uL (2.0-11.5); LYMPHOCYTES % (AUTO) 2.2 % (20.5-51.1); MEAN CORPUSCULAR HEMOGLOBIN 34 pg (27-31); MEAN CORPUSCULAR HGB CONC 33 g/dL (33-37); MEAN CORPUSCULAR VOLUME 104 fL (80-94); MONOCYTES # (AUTO) 0.4 K/uL (0.8-1.0); MONOCYTES % (AUTO) 4.1 % (1.7-9.3); NEUTROPHILS # (AUTO) 8.5 K/uL (1.8-7.7); NEUTROPHILS % (AUTO) 91.2 % (42.2-75.2); PLATELET COUNT (AUTO) 117 K/uL (140-450); RED BLOOD CELL COUNT(AUTO) 3.07 MIL/uL (4.20-6.10); RED CELL DISTRIBUTION WIDTH 15.8 % (11.6-13.7); WHITE BLOOD COUNT (AUTO) 9.3 K/uL (4.8-10.8)
[2017-07-27 20:21] LABS: PROTHROMBIN TIME 9.3 secs (10.8-13.4)
[2017-07-27 20:34] LABS: ALBUMIN 2.5 g/dL (3.4-5.0); ANION GAP 17.9 (8-16); BILIRUBIN,DIRECT 0.2 mg/dL (0.0-0.3); CARBON DIOXIDE 19.4 mmol/L (21-32); MAGNESIUM 1.9 mg/dL (1.8-2.4); PHOSPHORUS 5.4 mg/dL (2.5-4.9); POTASSIUM 5.3 mmol/L (3.5-5.1); TOTAL BILIRUBIN 0.6 mg/dL (0.0-1.0)
[2017-07-27 20:47] LABS: APPEARANCE,URINE HAZY (CLEAR); BILIRUBIN,URINE 2+ (NEGATIVE); BLOOD, URINE 3+ (NEGATIVE); COLOR,URINE YELLOW (YELLOW); LEUKOCYTE ESTERASE ,URINE NEGATIVE (NEGATIVE); NITRITE, URINE NEGATIVE (NEGATIVE); UGLUCOSE TRACE (NEGATIVE)
[2017-07-27 20:48] LABS: CREATININE 7.5 mg/dL (0.7-1.3)
[2017-07-27 20:53] LABS: RBC,URINE >100 /HPF (0-5); WBC,URINE 0-5 (RARE) /HPF (0-5)
[2017-07-27 20:54] LABS: URINE AMORPHOUS URATE 2+ /HPF (None Seen)
--- NOTE | 2017-07-27 21:00 | NUR ---
PTS AT BEDSIDE.UPDATED ON PTS PRESENT CONDITION.QUESTIONS ANSWERED
[2017-07-27] MEDS: INSULIN DETEMIR 100 UNITS/ML 10 ML VIAL SUBQ SCH (21:20)
[2017-07-28] VITALS (61 sets, daily range): BP systolic 94–132; BP diastolic 23–86
--- NOTE | 2017-07-28 | NUR ---
PTS CONDITION REMAINS UNCHANGED.STILL ON LEVOPHED DRIP AT 5MCG/MIN (9.37ML/HR).BANKS INTACT.SMALL AMT OF DARK BALTAZAR CLOUDY URINE NOTED.FLACC 0
[2017-07-28] MEDS: Z-GUARD PASTE TP SCH ×2 (00:44→13:46)
--- NOTE | 2017-07-28 02:00 | NUR ---
BLOOD DRAW DONE PER [facility] PROTOCOL. PT UNRESPONSIVE.STILL FIO2 50% /ETT TO VENT.LEVOPHED REMAINS AT 5MCG/MIN.FLACC 0.REPOSITIONED
[2017-07-28 02:39] LABS: APPEARANCE,URINE CLOUDY (CLEAR); BILIRUBIN,URINE 2+ (NEGATIVE); BLOOD, URINE 3+ (NEGATIVE); COLOR,URINE BROWN (YELLOW); LEUKOCYTE ESTERASE ,URINE NEGATIVE (NEGATIVE); NITRITE, URINE NEGATIVE (NEGATIVE); UGLUCOSE 1+ (NEGATIVE)
[2017-07-28 02:40] LABS: HEMATOCRIT 32.1 % (36-52); HEMOGLOBIN 10.2 g/dL (12.0-18.0); MEAN CORPUSCULAR HEMOGLOBIN 34 pg (27-31); MEAN CORPUSCULAR HGB CONC 32 g/dL (33-37); MEAN CORPUSCULAR VOLUME 107 fL (80-94); PLATELET COUNT (AUTO) 107 K/uL (140-450); RED BLOOD CELL COUNT(AUTO) 3.01 MIL/uL (4.20-6.10); RED CELL DISTRIBUTION WIDTH 16.5 % (11.6-13.7); WHITE BLOOD COUNT (AUTO) 8.8 K/uL (4.8-10.8)
[2017-07-28 02:56] LABS: PROTHROMBIN TIME 9.2 secs (10.8-13.4)
[2017-07-28 03:00] LABS: ALBUMIN 2.4 g/dL (3.4-5.0); ANION GAP 18.2 (8-16); BILIRUBIN,DIRECT 0.2 mg/dL (0.0-0.3); CARBON DIOXIDE 19.3 mmol/L (21-32); PHOSPHORUS 5.5 mg/dL (2.5-4.9); POTASSIUM 5.5 mmol/L (3.5-5.1); TOTAL BILIRUBIN 0.6 mg/dL (0.0-1.0)
[2017-07-28 03:04] LABS: CREATININE 7.7 mg/dL (0.7-1.3)
--- NOTE | 2017-07-28 03:10 | NUR ---
PHONE CALL FROM MELLY OF [facility].UPDATED ON PTS PRESENT CONDITION.MADE AWARE OF PTS V/S.TO ORDER ABDOMINAL ULTRASOUND FOR ORGAN DONATION.ORDERED.
[2017-07-28 04:35] LABS: LYMPHOCYTES % (MANUAL) 4 % (20-46); MONOCYTES % (MANUAL) 2 % (5-12)
[2017-07-28] MEDS: methylPREDNISolone SS 125 MG/2 ML VIAL IVP SCH ×2 (04:38→13:49)
--- NOTE | 2017-07-28 04:42 | NUR ---
MORNING CARE DONE.DRESSING TO SACRUM CHANGED.VENT SETTINGS REMAINS UNCHANGED.LEVOPHED DRIP AT 5MCG/MIN.FLACC 0
[2017-07-28 05:05] LABS: RBC,URINE TOO NUMEROUS TO COUN /HPF (0-5); WBC,URINE 0-5 (RARE) /HPF (0-5)
--- NOTE | 2017-07-28 06:29 | NUR ---
PTS CONDITION REMAINS UNCHANGED.SR TO ST ON MONITOR.LEVOPHED DRIP 8MG IN 250ML D5W AT 5MCG/MIN.TLC TO RT FEMORAL INTACT.FLACC 0.200ML URINE OUTPUT/FC.
--- NOTE | 2017-07-28 07:15 | NUR ---
RECEIVED PT STABLE ON VENT SUPPORT AT DOCUMENTED SETTINGS, NO RESP DISTRESS OR SOB NOTED, 7.0 ETT SECURED AT 23 CM AT THE LIP, ALARMS SET AND AUDIBLE, VENT PLUGGED INTO RED OUTLET, BAG MASK AT BEDSIDE, WILL CONTINUE TO MONITOR
--- NOTE | 2017-07-28 07:20 | NUR ---
NICHOLAS GARBER FROM [facility] HERE.
--- NOTE | 2017-07-28 07:30 | NUR ---
REPORT RECEIVED FROM GATO GIMENEZ.
--- NOTE | 2017-07-28 07:30 | NUR ---
PT. UNRESPONSIVE. ETT SIZE 7.0 LIP LINE 23 CM, TO VENT. TV 500, FI02 50%, AC 26/ MIN, PEEP 5. 02 SAT 92 TO 93%. IV 0.9NS INFUSING AT 100 ML/HR, VIA RT FEM. TLC. LEVOPHED INFUSING FOR BP MAINTENANCE. NGT IN PLACE.
[2017-07-28] MEDS: BLOOD GLUCOSE MONITORING 1 DEV DEV FS SCH ×2 (07:36→11:08)
[2017-07-28] MEDS: INSULIN LISPRO SLIDING SCALE 100 UNITS/ML VIAL SUBQ PRN ×2 (07:39→11:11)
[2017-07-28] MEDS: AZITHROMYCIN 500 MG in DEXTROSE 5% 250 ML IV SCH (08:08)
[2017-07-28] MEDS: levETIRAcetam 500 MG in NACL 0.9% 100 ML IV SCH (08:13)
--- NOTE | 2017-07-28 08:15 | NUR ---
DR. COLLADO HERE TO SEE AND EXAMINE PT.
--- NOTE | 2017-07-28 08:26 | NUR ---
PRONOUNCED BY DR. COLLADO.
[2017-07-28] MEDS: NACL 0.9% 1,000 ML IV SCH (08:29)
[2017-07-28] MEDS: PANTOPRAZOLE 40 MG INJ VIAL IVP SCH (08:30)
[2017-07-28] MEDS: INSULIN DETEMIR 100 UNITS/ML 10 ML VIAL SUBQ SCH (08:37)
--- NOTE | 2017-07-28 08:40 | NUR ---
VISITING AT BEDSIDE.
[2017-07-28] MEDS ORDERED: FOAM DRESSING TP SCH (09:00)
--- NOTE | 2017-07-28 09:00 | NUR ---
DR. LEYVA HERE TO SEE AND EXAMINE PT. SPOKE TO NICHOLAS GARBER FROM [facility].
--- NOTE | 2017-07-28 09:10 | NUR ---
DR. LEYVA NOTIFIED THAT LEVEMIR INSULIN HELD THIS AM DUE TO BEING NPO.
--- NOTE | 2017-07-28 11:20 | NUR ---
BS 483. SS INSULIN COVERAGE GIVEN. DR. LEYVA PAGED.
[2017-07-28 12:28] LABS: BILIRUBIN,URINE 2+ (NEGATIVE); BLOOD, URINE 3+ (NEGATIVE); COLOR,URINE YELLOW (YELLOW); LEUKOCYTE ESTERASE ,URINE NEGATIVE (NEGATIVE); NITRITE, URINE NEGATIVE (NEGATIVE); UGLUCOSE 1+ (NEGATIVE)
[2017-07-28 12:42] LABS: BASOPHILS # (AUTO) 0.2 K/uL (0.00-0.22); BASOPHILS % (AUTO) 2.1 % (0.0-2.0); EOSINOPHILS # (AUTO) 0.1 K/uL (0-0.4); EOSINOPHILS % (AUTO) 1.4 % (0.0-4.0); HEMATOCRIT 30.5 % (36-52); HEMOGLOBIN 9.9 g/dL (12.0-18.0); LYMPHOCYTES # (AUTO) 0.3 K/uL (2.0-11.5); LYMPHOCYTES % (AUTO) 2.7 % (20.5-51.1); MEAN CORPUSCULAR HEMOGLOBIN 34 pg (27-31); MEAN CORPUSCULAR HGB CONC 33 g/dL (33-37); MEAN CORPUSCULAR VOLUME 104 fL (80-94); MONOCYTES # (AUTO) 0.3 K/uL (0.8-1.0); MONOCYTES % (AUTO) 3.2 % (1.7-9.3); NEUTROPHILS # (AUTO) 9.2 K/uL (1.8-7.7); NEUTROPHILS % (AUTO) 90.6 % (42.2-75.2); PLATELET COUNT (AUTO) 115 K/uL (140-450); RED BLOOD CELL COUNT(AUTO) 2.93 MIL/uL (4.20-6.10); RED CELL DISTRIBUTION WIDTH 16.4 % (11.6-13.7)
[2017-07-28 12:53] LABS: RBC,URINE 3-10 (FEW) /HPF (0-5); WBC,URINE 0-5 (RARE) /HPF (0-5)
[2017-07-28 12:55] LABS: APPEARANCE,URINE HAZY (CLEAR)
[2017-07-28 12:56] LABS: ALBUMIN 2.3 g/dL (3.4-5.0); ANION GAP 16.5 (8-16); BILIRUBIN,DIRECT 0.2 mg/dL (0.0-0.3); CARBON DIOXIDE 19.6 mmol/L (21-32); PHOSPHORUS 5.6 mg/dL (2.5-4.9); TOTAL BILIRUBIN 0.6 mg/dL (0.0-1.0)
[2017-07-28 13:05] LABS: POTASSIUM 6.1 mmol/L (3.5-5.1)
[2017-07-28 13:06] LABS: CREATININE 8.2 mg/dL (0.7-1.3)
[2017-07-28] MEDS ORDERED: FUROSEMIDE 40 MG/4 ML VIAL IVP ONE (13:19)
[2017-07-28] MEDS ORDERED: OSMITROL 25% 12.5 GM/50 ML VIAL IV ONE (13:20)
[2017-07-28 13:24] LABS: WHITE BLOOD COUNT (AUTO) 10.1 K/uL (4.8-10.8)
[2017-07-28] MEDS ORDERED: ROCURONIUM 50 MG/5 ML VIAL IV ONE (13:51)
[2017-07-28 13:53] LABS: PROTHROMBIN TIME 9.3 secs (10.8-13.4)
--- NOTE | 2017-07-28 13:58 | NUR ---
FAXED CONCURRENT REVIEW AND PROGRESS NOTES BY DR COLLADO TO [facility] / [facility] [phone] PHONE [phone]
--- NOTE | 2017-07-28 14:10 | NUR ---
PT. TRANSPORTED TO OR PER BED .ACCPD. BY OR NURSES AND [facility] PERSONNEL.
[2017-07-28] MEDS ORDERED: PROBIOTIC SCREEN 1 EA MISC MC PRN (14:30)
== END 2017-07-28 08:26 | disposition expired | DRG 981 ==
LOC: MED 00:35 → EEVIPCON 02:27 → MIC 02:27
PROVIDERS: ADMIT Internal Medicine Pulmonary Disease; ATTEND Internal Medicine Pulmonary Disease
PROC: 5A1945Z Respiratory Ventilation, 24-96 Consecutive Hours (ICD-10-PCS; principal; 2017-07-25)
PROC: 06HM33Z Insertion of Infusion Device into Right Femoral Vein, Percutaneous Approach (ICD-10-PCS; 2017-07-25)
PROC: 5A12012 Performance of Cardiac Output, Single, Manual (ICD-10-PCS; 2017-07-25)
PROC: 0FT00ZZ Resection of Liver, Open Approach (ICD-10-PCS; 2017-07-28)
PROC: 0TT20ZZ Resection of Bilateral Kidneys, Open Approach (ICD-10-PCS; 2017-07-28)
DX: J96.00 Acute respiratory failure, unspecified whether with hypoxia or hypercapnia (principal); G93.6 Cerebral edema; I46.9 Cardiac arrest, cause unspecified; G93.40 Encephalopathy, unspecified; G93.1 Anoxic brain damage, not elsewhere classified; K50.90 Crohn's disease, unspecified, without complications; N17.9 Acute kidney failure, unspecified; J45.902 Unspecified asthma with status asthmaticus; E87.2 Acidosis; Z52.6 Liver donor; Z66 Do not resuscitate; K76.0 Fatty (change of) liver, not elsewhere classified; G89.4 Chronic pain syndrome; R40.2430 Glasgow coma scale score 3-8, unspecified time; F12.90 Cannabis use, unspecified, uncomplicated; Z52.4 Kidney donor
CPT/HCPCS: 36415; 36556; 36600; 43753; 51702; 70450; 71010; 76700; 80053; 80305; 81001; 82150; 82247; 82248; 82550; 82553; 82803; 82948; 82977; 83605; 83690; 83735; 84100; 84484; 85025; 85610; 85730; 86900; 86901; 87040; 87070; 87081; 87086; 87205; 93005; 94003; 94640; 96374; 99291; C9113; J0171; J0456; J0461; J1644; J1815; J1940; J1953; J2060; J2150; J2270; J2543; J2930; J3370; J3475; J3490; J7030; J7042; J7060; J7613; J7620; J7644; Q0092